=== PATIENT | female | born 1950 | race American Indian/Alaskan Native ===

== ENCOUNTER 2016-05-08 15:15 | Outpatient (CLI) | payer MEDICARE, BC ==
--- NOTE | 2016-05-09 10:44 | XRay Report ---
NECK SOFT TISSUE RADIOGRAPHS INDICATION: Lump on left side of neck inferiorly, close to clavicle. COMPARISON: None similar at this institution. FINDINGS: AP and lateral neck radiographs demonstrate patent airway and normal prevertebral soft tissues. Intact imaged osseous structures, including the craniocervical articulation. Possible osteopenia. Slight, age-appropriate cervical spine degenerative changes. Few radiopaque dental fillings. Single surgical wire noted about the left mandibular angle. Numerous extrinsic hairpin artifacts. Mild aortic knob calcifications. Clear visualized lung bases. CONCLUSION: No acute left lower neck radiographic abnormality identified with various other incidental findings, as above. Please also correlate clinically and further with contrasted neck CT and surface marker if the mass palpable, as warranted. Thank you for the opportunity to participate in this patient's care.
== END 2016-05-08 15:16 | disposition home or self-care (01) ==
LOC: XRAY 15:15
PROVIDERS: ATTEND Internal Medicine
DX: M47.892 Other spondylosis, cervical region (principal); I70.0 Atherosclerosis of aorta
CPT/HCPCS: 70360

== ENCOUNTER 2016-05-15 10:50 | Outpatient (CLI) | payer BC ==
--- NOTE | 2016-05-15 14:25 | Mammography Report ---
BILATERAL DIGITAL SCREENING MAMMOGRAM with CAD: 05/15/16 10:50:00 CLINICAL: Routine screening. COMPARISON:None. She has not had a recent mammogram. FINDINGS: The breasts are predominantly fatty with a few bilateral scattered fibroglandular densities. An oval circumscribed right upper outer mass or lymph node requires additional imaging. No architectural distortion or suspicious calcifications.The left breast is negative. IMPRESSION: Right upper outer mass or lymph node requiring further workup. BI-RADS CATEGORY: 0 -- Additional Imaging Evaluation Required RECOMMENDATION: Recall for a right breast ultrasound. ACR BI-RADS MAMMOGRAPHIC CODES: 0 = Needs additional imaging evaluation; 1 = Negative; 2 = Benign; 3 = Probably benign; 4 = Suspicious; 5 = Malignant; 6 = Known biopsy-proven malignancy COMMENT: 1. Dense breast tissue, i.e., adenosis, fibrocystic changes, etc., may obscure an underlying neoplasm. 2. Approximately 10% of cancers are not detected with mammography. 3. A negative mammography report should not delay biopsy if a clinically suspicious mass is present. COMMENT: Patient follow-up letters are generated via our [employer] application.
== END 2016-05-15 10:51 | disposition home or self-care (01) ==
LOC: MAMMO 10:50
PROVIDERS: ATTEND Internal Medicine
DX: Z12.31 Encounter for screening mammogram for malignant neoplasm of breast (principal); R22.1 Localized swelling, mass and lump, neck
CPT/HCPCS: 77067; G0202